=== PATIENT | female | born 1995 | race Two or more races ===

== ENCOUNTER → 2019-09-05 | Emergency (ER) | payer MEDICAID, OTHER ==
[~2019-09-05] VITALS: Ht 167.6 cm; Wt 128.8 kg
[~2019-09-05] MED LIST: SODIUM CHLORIDE 0.9% 1,000 ML IV ONE
[2019-09-05 09:07] LABS: Basophils # (auto) 0 10 ^3/uL (0-0.2); Basophils % (auto) 0.4 % (0.0-2.0); Eosinophils # (auto) 0 10 ^3/uL (0-0.8); Eosinophils % (auto) 0.3 % (0.0-7.0); Hematocrit 33.1 % (36.0-46.0); Hemoglobin 11.1 g/dL (12.2-16.2); Lymphocytes # (auto) 2.1 10 ^3/uL (0.4-5.4); Lymphocytes % (auto) 22.1 % (10.0-50.0); Mean Corpuscular Hgb Conc. 33.6 g/dL (32.0-36.0); Mean Corpuscular Volume 83.2 fL (80.0-100.0); Monocytes # (auto) 0.5 10 ^3/uL (0-1.3); Monocytes % (auto) 5.1 % (0.0-12.0); Neutrophils % (auto) 72.1 % (37.0-80.0); Platelet Count (auto) 263 10^3/uL (140-450); Red Blood Cells 3.97 10^6/uL (4.0-5.20); White Blood Cell 9.7 10^3/uL (4.4-10.8)
[2019-09-05 09:24] LABS: Albumin 3.1 g/dL (3.4-5.0); Calcium 8.6 mg/dL (8.5-10.1); Potassium 3.7 mmol/L (3.5-5.1)
[2019-09-05 09:28] LABS: BUN/Creatinine Ratio 10.1; Bilirubin, Total 0.4 mg/dL (0.2-1.0); Total Protein 6.7 g/dL (6.4-8.2)
[2019-09-05 09:47] LABS: Basophils # (auto) 0 10 ^3/uL (0-0.2); Basophils % (auto) 0.3 % (0.0-2.0); Eosinophils # (auto) 0 10 ^3/uL (0-0.8); Eosinophils % (auto) 0.4 % (0.0-7.0); Hematocrit 31.8 % (36.0-46.0); Hemoglobin 10.8 g/dL (12.2-16.2); Lymphocytes # (auto) 2.1 10 ^3/uL (0.4-5.4); Lymphocytes % (auto) 22.2 % (10.0-50.0); Mean Corpuscular Hgb Conc. 33.9 g/dL (32.0-36.0); Mean Corpuscular Volume 82.6 fL (80.0-100.0); Monocytes # (auto) 0.5 10 ^3/uL (0-1.3); Monocytes % (auto) 4.8 % (0.0-12.0); Neutrophils # (auto) 6.9 10 ^3/uL (1.6-8.6); Neutrophils % (auto) 72.3 % (37.0-80.0); Platelet Count (auto) 250 10^3/uL (140-450); Red Blood Cells 3.85 10^6/uL (4.0-5.20); White Blood Cell 9.6 10^3/uL (4.4-10.8)
[2019-09-05 13:15] VITALS: BP 123/67
== END | disposition home or self-care (01) ==
LOC: ER 08:24 → EDBD 08:24
DX: N93.8 Other specified abnormal uterine and vaginal bleeding (principal)
CPT/HCPCS: 36415; 80053; 84702; 85025; 99285; J7030

== ENCOUNTER 2020-05-14 01:44 | Emergency (ER) | payer MEDICAID ==
[~2020-05-14] VITALS: Ht 167.6 cm; Wt 125.6 kg
[2020-05-14 01:51] VITALS: BP 158/97
== END 2020-05-14 04:12 | disposition left against medical advice (07) ==
LOC: ER 01:44
DX: U07.1 COVID-19 (principal); R06.02 Shortness of breath; R05 Cough; R53.1 Weakness; R09.81 Nasal congestion; R07.0 Pain in throat; E11.9 Type 2 diabetes mellitus without complications
CPT/HCPCS: 36415; 87426

== ENCOUNTER 2022-12-28 19:39 | Emergency (ER) | payer MEDICAID ==
[~2022-12-28] VITALS: Ht 167.6 cm; Wt 118.2 kg
[2022-12-28 20:18] LABS: Basophils # (auto) 0.1 10 ^3/uL (0-0.2); Basophils % (auto) 0.5 % (0.0-2.0); Eosinophils # (auto) 0 10 ^3/uL (0-0.8); Eosinophils % (auto) 0.3 % (0.0-7.0); Hematocrit 41.7 % (36.0-46.0); Hemoglobin 13.8 g/dL (12.2-16.2); Lymphocytes # (auto) 2.9 10 ^3/uL (0.4-5.4); Lymphocytes % (auto) 24.5 % (10.0-50.0); Mean Corpuscular Hemoglobin 28.3 pg (28.0-32.0); Mean Corpuscular Hgb Conc. 33.2 g/dL (32.0-36.0); Mean Corpuscular Volume 85.3 fL (80.0-100.0); Monocytes # (auto) 0.6 10 ^3/uL (0-1.3); Neutrophils # (auto) 8.3 10 ^3/uL (1.6-8.6); Neutrophils % (auto) 69.7 % (37.0-80.0); Nucleated Red Blood Cells % 0.1 %; Red Blood Cells 4.89 10^6/uL (4.0-5.20); Red Cell Distribution Width 13.9 % (11.8-14.3)
[2022-12-28 20:27] LABS: Urine Bacteria FEW /hpf (None Seen); Urine Blood Negative /uL (Negative); Urine Mucus FEW (None Seen); Urine Specific Gravity 1.036 (1.001-1.035); Urine WBC 16 /hpf (0 - 5)
[2022-12-28 20:37] LABS: Albumin 3.4 g/dL (3.4-5.0); BUN/Creatinine Ratio 5.3 (10.0-20.0); Calcium 8.6 mg/dL (8.5-10.1); Potassium 3.3 mmol/L (3.5-5.1)
[2022-12-28 20:40] LABS: Bilirubin, Total 0.3 mg/dL (0.2-1.0); Total Protein 7.6 g/dL (6.4-8.2)
[2022-12-29 00:39] VITALS: BP 121/76
[2022-12-29] MEDS ORDERED: CEPH250C PO (02:31)
== END 2022-12-29 04:00 | disposition home or self-care (01) ==
LOC: ER 19:39
DX: O23.31 Infections of other parts of urinary tract in pregnancy, first trimester (principal); O26.891 Other specified pregnancy related conditions, first trimester; N39.0 Urinary tract infection, site not specified; R31.9 Hematuria, unspecified; E11.9 Type 2 diabetes mellitus without complications; Z3A.01 Less than 8 weeks gestation of pregnancy
CPT/HCPCS: 36415; 76801; 76817; 80053; 81001; 81025; 84702; 85025

== ENCOUNTER 2023-06-24 10:39 | Observation (INO) | payer MEDICAID ==
[~2023-06-24] VITALS: Ht 167.6 cm; Wt 124.4 kg
[2023-06-24 10:39] VITALS: BP 119/54; PULSE 92; RESP 16; O2SAT 98
[~2023-06-24 10:39] MED LIST changes: +CEPH250C PO; -SODIUM CHLORIDE 0.9% 1,000 ML IV ONE
[2023-06-24] MEDS ORDERED: PREN-96 PO (12:19)
[2023-06-24] MEDS ORDERED: FOLI-119 PO (12:19)
[2023-06-24] MEDS ORDERED: ASPI-543 PO (12:19)
[2023-06-24] MEDS ORDERED: INSLISPI SC (12:19)
[2023-06-24] MEDS ORDERED: METF-372 PO (12:19)
[2023-06-24] MEDS ORDERED: ONDANSETRON ODT 4 MG TAB PO ONE (12:45)
[2023-06-24] MEDS ORDERED: ACETAMINOPHEN 325 MG TAB PO ONE (12:45)
[2023-06-24 13:51] LABS: COVID19 ANTIGEN SOFIA FIA NEGATIVE (NEGATIVE); Rapid Influenza A Negative (Negative); Rapid Influenza B Negative (Negative)
[2023-06-24 15:11] LABS: Basophils # (auto) 0 10 ^3/uL (0-0.2); Basophils % (auto) 0.2 % (0.0-2.0); Eosinophils # (auto) 0 10 ^3/uL (0-0.8); Eosinophils % (auto) 0.5 % (0.0-7.0); Hematocrit 37.5 % (36.0-46.0); Hemoglobin 12.9 g/dL (12.2-16.2); Lymphocytes # (auto) 2.2 10 ^3/uL (0.4-5.4); Lymphocytes % (auto) 22.3 % (10.0-50.0); Mean Corpuscular Hemoglobin 29.4 pg (28.0-32.0); Mean Corpuscular Hgb Conc. 34.4 g/dL (32.0-36.0); Mean Corpuscular Volume 85.4 fL (80.0-100.0); Monocytes # (auto) 0.4 10 ^3/uL (0-1.3); Monocytes % (auto) 3.9 % (0.0-12.0); Neutrophils # (auto) 7.3 10 ^3/uL (1.6-8.6); Neutrophils % (auto) 73.1 % (37.0-80.0); Red Blood Cells 4.39 10^6/uL (4.0-5.20); Red Cell Distribution Width 13.8 % (11.8-14.3); White Blood Cell 10.1 10^3/uL (4.4-10.8)
[2023-06-24 15:35] LABS: Alanine Aminotransferase 16 U/L (7-40); Albumin 3.6 g/dL (3.2-4.8); Alkaline Phosphatase 63 U/L (46-116); Anion Gap 11 (5-15); Aspartate Aminotransferase 13 U/L (13-40); Calcium 8.4 mg/dL (8.7-10.4); Carbon Dioxide 19 mmol/L (20-30); Chloride 105 mmol/L (98-107); Glucose 116 mg/dL (74-106); Lipase 29 U/L (12-53); Potassium 3.4 mmol/L (3.5-5.1); Sodium 135 mmol/L (136-145)
[2023-06-24 15:36] LABS: BUN/Creatinine Ratio 14.7 (10.0-20.0); Bilirubin, Total 0.4 mg/dL (0.2-1.0); Blood Urea Nitrogen < 5 mg/dL (9-23); Total Protein 6.3 g/dL (5.7-8.2)
[2023-06-24 16:02] LABS: Urine Bacteria FEW /hpf (None Seen); Urine Blood Negative /uL (Negative); Urine Clarity HAZY (Clear); Urine Color Yellow (Yellow); Urine Mucus FEW (None Seen); Urine Protein, UAD TRACE (Negative); Urine Specific Gravity 1.016 (1.001-1.035); Urine Urobilinogen Normal (Negative); Urine WBC 5 /hpf (0 - 5); Urine pH 6.5 (5.0-8.0)
== END 2023-06-24 16:35 | disposition home or self-care (01) ==
LOC: ER 10:39 → LDRP 11:00
PROVIDERS: ADMIT Obstetrics & Gynecology; ATTEND Obstetrics & Gynecology
DX: O60.03 Preterm labor without delivery, third trimester (principal); Z20.822 Contact with and (suspected) exposure to COVID-19; O21.2 Late vomiting of pregnancy; O24.419 Gestational diabetes mellitus in pregnancy, unspecified control; O26.893 Other specified pregnancy related conditions, third trimester; R10.30 Lower abdominal pain, unspecified; R51.9 Headache, unspecified; Z3A.31 31 weeks gestation of pregnancy
CPT/HCPCS: 36415; 59025; 76705; 76805; 80053; 81001; 81002; 82150; 82948; 82962; 83690; 85025; 87086; 87426; 87804; 99284; G0378

== ENCOUNTER 2023-07-24 12:16 | Emergency (ER) | payer MEDICAID ==
[~2023-07-24] VITALS: Ht 167.6 cm; Wt 133.0 kg
[~2023-07-24 12:16] MED LIST changes: +ASPI-543 PO; +FOLI-119 PO; +INSLISPI SC; +METF-372 PO; +PREN-96 PO
[2023-07-24 14:01] VITALS: BP 115/79; PULSE 101; RESP 16; TEMP 97.5; O2SAT 99
[2023-07-24] MEDS ORDERED: AMOX500C2 PO (14:19)
== END 2023-07-24 14:30 | disposition home or self-care (01) ==
LOC: ER 12:16
DX: H66.92 Otitis media, unspecified, left ear (principal); R07.0 Pain in throat; E11.9 Type 2 diabetes mellitus without complications; Z79.899 Other long term (current) drug therapy

== ENCOUNTER 2023-08-06 04:20 | Emergency (ER) | payer MEDICAID ==
[~2023-08-06] VITALS: Ht 167.6 cm; Wt 133.9 kg
[~2023-08-06 04:20] MED LIST changes: +AMOX500C2 PO
[2023-08-06 04:31] VITALS: BP 142/74; PULSE 83; RESP 20; O2SAT 96
[2023-08-06] MEDS ORDERED: ACET500T58 PO (04:53)
[2023-08-06] MEDS ORDERED: AMOX875T4 PO (04:53)
== END 2023-08-06 04:59 | disposition home or self-care (01) ==
LOC: ER 04:20
DX: O26.893 Other specified pregnancy related conditions, third trimester (principal); S02.5XXA Fracture of tooth (traumatic), initial encounter for closed fracture; E11.9 Type 2 diabetes mellitus without complications; K04.7 Periapical abscess without sinus; Z3A.38 38 weeks gestation of pregnancy; X58.XXXA Exposure to other specified factors, initial encounter; Y93.89 Activity, other specified; Y92.89 Other specified places as the place of occurrence of the external cause; Y99.8 Other external cause status

== ENCOUNTER 2023-10-21 21:21 | Emergency (ER) | payer MEDICAID ==
[~2023-10-21] VITALS: Ht 167.6 cm; Wt 113.0 kg
[~2023-10-21 21:21] MED LIST changes: +ACET500T58 PO; +AMOX875T4 PO
[2023-10-21 22:09] LABS: Urine Bacteria FEW /hpf (None Seen); Urine Blood 1+ /uL (Negative); Urine Clarity Turbid (Clear); Urine Color Colorless (Yellow); Urine Protein, UAD 2+ (Negative); Urine Specific Gravity 1.015 (1.001-1.035); Urine Urobilinogen Normal (Negative); Urine WBC 237 /hpf (0 - 5); Urine pH 6.5 (5.0-9.0)
[2023-10-21] MEDS: ONDANSETRON ODT 4 MG TAB PO ONE (22:15)
[2023-10-21] MEDS ORDERED: ZOFR4T PO (22:25)
[2023-10-21] MEDS ORDERED: BACDST PO (22:25)
[2023-10-21] MEDS ORDERED: ACET500T58 PO (22:25)
[2023-10-21] MEDS ORDERED: IBUP-1455 PO (22:25)
[2023-10-22] MEDS: HYDROcodone-ACET 10/325MG TAB PO ONE (02:18)
[2023-10-22] MEDS: IBUPROFEN 800 MG TAB PO ONE (02:18)
[2023-10-22] MEDS: cefTRIAXone SOD 1,000 MG VL IM ONE (02:18)
[2023-10-22] MEDS: SULFAMETHOX W/TRIMETH(800/160MG) DS TAB PO ONE (02:18)
[2023-10-22 02:22] VITALS: BP 119/83; PULSE 105; RESP 18; TEMP 98.6; O2SAT 97
== END 2023-10-22 02:26 | disposition short-term general hospital (02) ==
LOC: ER 21:21
DX: O23.01 Infections of kidney in pregnancy, first trimester (principal); E11.9 Type 2 diabetes mellitus without complications; Z3A.01 Less than 8 weeks gestation of pregnancy
CPT/HCPCS: 81001; 81025; 96372; 99285; J0696; Q0162

== ENCOUNTER 2024-03-18 15:13 | Inpatient (IN) | payer MEDICAID ==
[~2024-03-18] VITALS: Ht 167.6 cm; Wt 124.4 kg
[~2024-03-18 15:13] MED LIST changes: +BACDST PO; +IBUP-1455 PO; +ZOFR4T PO
[2024-03-18 16:21] LABS: Eosinophils # (auto) 0 10 ^3/uL (0-0.8); Hematocrit 40.8 % (36.0-46.0); Monocytes # (auto) 0.8 10 ^3/uL (0-1.3)
[2024-03-18 16:23] LABS: Basophils # (auto) 0 10 ^3/uL (0-0.2); Basophils % (auto) 0.3 % (0.0-2.0); Hemoglobin 13.6 g/dL (12.2-16.2); Lymphocytes # (auto) 0.9 10 ^3/uL (0.4-5.4); Lymphocytes % (auto) 5.6 % (10.0-50.0); Mean Corpuscular Hemoglobin 26.4 pg (28.0-32.0); Mean Corpuscular Hgb Conc. 33.4 g/dL (32.0-36.0); Monocytes % (auto) 5.3 % (0.0-12.0); Neutrophils # (auto) 14.2 10 ^3/uL (1.6-8.6); Neutrophils % (auto) 88.8 % (37.0-80.0); Platelet Count (auto) 299 10^3/uL (140-450); Red Blood Cells 5.16 10^6/uL (4.0-5.20); Red Cell Distribution Width 15.2 % (11.8-14.3)
[2024-03-18 16:35] LABS: Urine Bacteria FEW /hpf (None Seen); Urine Blood 1+ /uL (Negative); Urine Clarity Turbid (Clear); Urine Color Colorless (Yellow); Urine Protein, UAD TRACE (Negative); Urine Specific Gravity 1.021 (1.001-1.035); Urine Urobilinogen Normal (Negative); Urine WBC 196 /hpf (0 - 5); Urine pH 6.5 (5.0-9.0)
[2024-03-18 16:55] LABS: Albumin 4.8 g/dL (3.2-4.8); Alkaline Phosphatase 90 U/L (46-116); Anion Gap 9 (5-15); Aspartate Aminotransferase 41 U/L (13-40); Bilirubin, Total 1.2 mg/dL (0.2-1.0); Calcium 9.9 mg/dL (8.7-10.4); Carbon Dioxide 20 mmol/L (20-30); Chloride 104 mmol/L (98-107); Glucose 288 mg/dL (74-106); Sodium 133 mmol/L (136-145); Total Protein 8.2 g/dL (5.7-8.2)
[2024-03-18 17:01] LABS: Alanine Aminotransferase 31 U/L (7-40); BUN/Creatinine Ratio 9.9 (10.0-20.0); Blood Urea Nitrogen 9 mg/dL (9-23); Potassium 4.4 mmol/L (3.5-5.1)
[2024-03-18] MEDS: ACETAMINOPHEN 500 MG TAB PO ONE (22:49)
[2024-03-18] MEDS: SODIUM CHLORIDE 0.9% 1,000 ML IV ONE (22:49)
[2024-03-18] MEDS: cefTRIAXone 1GM/50ML D5W 50 ML IV ONE (23:07)
[2024-03-18] MEDS ORDERED: DEXTROSE (50%) 50ML SYRG IV PRN (23:15)
[2024-03-19] VITALS (9 sets, daily range): BP systolic 110–136; BP diastolic 55–86; PULSE 76–107; RESP 16–19; TEMP 97.6–100.4; O2SAT 94–97
[2024-03-19] MEDS: ACCU-CHEK COMFORT CURVE STRIP VI SCH ×2 (01:02→17:53)
[2024-03-19] MEDS: InsuLIN REG 1unit/0.01ml Soln (100units/ml) SC SCH ×2 (01:05→17:54)
[2024-03-19] MEDS ORDERED: HYDROcodone-ACET 5/325MG TAB PO PRN (05:45)
[2024-03-19] MEDS: HYDROcodone-ACET 5/325MG TAB PO PRN (06:24)
[2024-03-19] MEDS: SODIUM CHLORIDE 0.9% 500 ML IV ONE (06:25)
[2024-03-19 07:18] LABS: Basophils # (auto) 0 10 ^3/uL (0-0.2); Basophils % (auto) 0.4 % (0.0-2.0); Eosinophils # (auto) 0 10 ^3/uL (0-0.8); Eosinophils % (auto) 0.5 % (0.0-7.0); Hematocrit 37.7 % (36.0-46.0); Hemoglobin 12.8 g/dL (12.2-16.2); Lymphocytes % (auto) 20.3 % (10.0-50.0); Mean Corpuscular Volume 79.4 fL (80.0-100.0); Monocytes # (auto) 0.3 10 ^3/uL (0-1.3); Monocytes % (auto) 3.4 % (0.0-12.0); Neutrophils # (auto) 7.3 10 ^3/uL (1.6-8.6); Neutrophils % (auto) 75.4 % (37.0-80.0); Platelet Count (auto) 259 10^3/uL (140-450); Red Blood Cells 4.75 10^6/uL (4.0-5.20); Red Cell Distribution Width 15.9 % (11.8-14.3); White Blood Cell 9.7 10^3/uL (4.4-10.8)
[2024-03-19] MEDS: SODIUM CHLORIDE 0.9% 1,000 ML IV SCH (07:32)
[2024-03-19 07:36] LABS: Alanine Aminotransferase 17 U/L (7-40); Albumin 4.2 g/dL (3.2-4.8); Alkaline Phosphatase 83 U/L (46-116); Anion Gap 7 (5-15); Aspartate Aminotransferase 9 U/L (13-40); Blood Urea Nitrogen 8 mg/dL (9-23); Calcium 9.3 mg/dL (8.7-10.4); Carbon Dioxide 28 mmol/L (20-30); Chloride 104 mmol/L (98-107); Glucose 189 mg/dL (74-106); Potassium 3.1 mmol/L (3.5-5.1); Sodium 139 mmol/L (136-145)
[2024-03-19 07:37] LABS: Bilirubin, Total 0.6 mg/dL (0.2-1.0); Total Protein 7.2 g/dL (5.7-8.2)
[2024-03-19 09:04] LABS: Hepatitis B Surface Antigen Negative (Negative)
[2024-03-19 09:26] LABS: Hepatitis C Antibody Negative (Negative)
[2024-03-19] MEDS: POTASSIUM EFFERVESENT TAB 25 MEQ PO ONE (10:23)
[2024-03-19] MEDS: HYDROcodone-ACET 7.5/325MG TAB PO ONE (11:51)
[2024-03-19] MEDS: INSULIN LANTUS (GLARGINE) 1 /0.01ml (100units/ml) SC SCH (12:16)
[2024-03-19] MEDS: ACETAMINOPHEN 325 MG TAB PO PRN (16:24)
[2024-03-19] MEDS ORDERED: DEXTROSE (50%) 50ML SYRG IV PRN (17:30)
[2024-03-19] MEDS: cefTRIAXone 1GM/50ML D5W 50 ML IV SCH (21:11)
[2024-03-20] VITALS (9 sets, daily range): BP systolic 109–144; BP diastolic 65–84; PULSE 91–104; RESP 16–21; TEMP 98.2–100.8; O2SAT 95–99
[2024-03-20 06:27] LABS: Amphetamine Screen, Urine Neg (NEGATIVE); Barbiturate Scree,Urine Neg (NEGATIVE); Benzodiazephine Screen, Urine Neg (NEGATIVE); Cannabinoid Screen, Urine Neg (NEGATIVE); Cocaine Screen, Urine Neg (NEGATIVE); Opiate Scree,Urine Neg (NEGATIVE); Phencyclidine Screen, Urine Neg (NEGATIVE)
[2024-03-20] MEDS: INSULIN LANTUS (GLARGINE) 1 /0.01ml (100units/ml) SC SCH (07:05)
[2024-03-20 08:00] LABS: Basophils # (auto) 0 10 ^3/uL (0-0.2); Basophils % (auto) 0.4 % (0.0-2.0); Eosinophils # (auto) 0 10 ^3/uL (0-0.8); Eosinophils % (auto) 0.1 % (0.0-7.0); Hematocrit 37.8 % (36.0-46.0); Hemoglobin 12.7 g/dL (12.2-16.2); Lymphocytes # (auto) 1.4 10 ^3/uL (0.4-5.4); Mean Corpuscular Hemoglobin 27.7 pg (28.0-32.0); Mean Corpuscular Hgb Conc. 33.7 g/dL (32.0-36.0); Mean Corpuscular Volume 82.2 fL (80.0-100.0); Monocytes # (auto) 0.7 10 ^3/uL (0-1.3); Monocytes % (auto) 8.2 % (0.0-12.0); Neutrophils # (auto) 6.7 10 ^3/uL (1.6-8.6); Neutrophils % (auto) 75.3 % (37.0-80.0); Platelet Count (auto) 243 10^3/uL (140-450); Red Cell Distribution Width 15.6 % (11.8-14.3)
[2024-03-20 08:10] LABS: Calcium 9.1 mg/dL (8.7-10.4); Chloride 102 mmol/L (98-107); Potassium 3.3 mmol/L (3.5-5.1); Sodium 135 mmol/L (136-145)
[2024-03-20 08:11] LABS: Anion Gap 9 (5-15); Carbon Dioxide 24 mmol/L (20-31)
[2024-03-20 08:16] LABS: BUN/Creatinine Ratio 8.1 (10.0-20.0); Blood Urea Nitrogen < 5 mg/dL (9-23)
[2024-03-20 08:28] LABS: Glucose 194 mg/dL (74-106)
[2024-03-20] MEDS: POTASSIUM EFFERVESENT TAB 25 MEQ PO ONE (09:08)
[2024-03-20] MEDS: HYDROcodone-ACET 7.5/325MG TAB PO PRN (13:12)
[2024-03-21 04:57] VITALS: BP 122/67; PULSE 67; RESP 18; TEMP 99.1; O2SAT 92
[2024-03-21 08:00] VITALS: RESP 16; O2SAT 95
[2024-03-21 08:14] LABS: Basophils # (auto) 0 10 ^3/uL (0-0.2); Basophils % (auto) 0.5 % (0.0-2.0); Eosinophils # (auto) 0 10 ^3/uL (0-0.8); Eosinophils % (auto) 0.2 % (0.0-7.0); Hematocrit 35.1 % (36.0-46.0); Lymphocytes # (auto) 1.9 10 ^3/uL (0.4-5.4); Lymphocytes % (auto) 32.1 % (10.0-50.0); Mean Corpuscular Hemoglobin 27.2 pg (28.0-32.0); Mean Corpuscular Hgb Conc. 34.2 g/dL (32.0-36.0); Mean Corpuscular Volume 79.6 fL (80.0-100.0); Monocytes # (auto) 0.7 10 ^3/uL (0-1.3); Neutrophils # (auto) 3.4 10 ^3/uL (1.6-8.6); Neutrophils % (auto) 56.2 % (37.0-80.0); Nucleated Red Blood Cells % 0.1 %; Platelet Count (auto) 242 10^3/uL (140-450); Red Blood Cells 4.41 10^6/uL (4.0-5.20); Red Cell Distribution Width 15.3 % (11.8-14.3)
[2024-03-21 08:19] LABS: Anion Gap 8 (5-15); Calcium 9.2 mg/dL (8.7-10.4); Carbon Dioxide 24 mmol/L (20-31); Chloride 104 mmol/L (98-107); Potassium 3.6 mmol/L (3.5-5.1); Sodium 136 mmol/L (136-145)
[2024-03-21 08:25] LABS: Glucose 170 mg/dL (74-106)
[2024-03-21 08:28] LABS: Blood Urea Nitrogen < 5 mg/dL (9-23)
[2024-03-21 09:00] VITALS: BP 127/76; PULSE 78; RESP 14; TEMP 98.7; O2SAT 96
[2024-03-21] MEDS ORDERED: INSLANTI SC (12:31)
[2024-03-21] MEDS ORDERED: CEFP200T15 PO (12:31)
[2024-03-21 13:00] VITALS: BP 117/79; PULSE 66; RESP 16; TEMP 97.9; O2SAT 98
== END 2024-03-21 15:30 | disposition home or self-care (01) | DRG 720 ==
LOC: ER 15:13 → CENTRAL 22:39 → OVERFLOW 22:39 → CENTRAL 23:50
PROVIDERS: ADMIT Internal Medicine; ATTEND Emergency Medicine
DX: A41.9 Sepsis, unspecified organism (principal); E87.1 Hypo-osmolality and hyponatremia; N12 Tubulo-interstitial nephritis, not specified as acute or chronic; E11.65 Type 2 diabetes mellitus with hyperglycemia; E87.6 Hypokalemia; D17.9 Benign lipomatous neoplasm, unspecified; E66.01 Morbid (severe) obesity due to excess calories; N30.90 Cystitis, unspecified without hematuria; Z68.41 Body mass index [BMI] 40.0-44.9, adult; Z79.1 Long term (current) use of non-steroidal anti-inflammatories (NSAID); Z79.899 Other long term (current) drug therapy; Z79.4 Long term (current) use of insulin
CPT/HCPCS: 36415; 71045; 74176; 80048; 80053; 80307; 81001; 82962; 83036; 83605; 83690; 83735; 84702; 85025; 86803; 87040; 87086; 87340; G0378; J1815